=== PATIENT | male | born 1990 | race Hispanic/Latino ===

== ENCOUNTER 2020-05-20 17:30 | Emergency (ER) | payer SELFPAY ==
[2020-05-20 18:08] LABS: Absolute Lymphocytes (CBC) 1.9 K/uL (0.7-4.9); Basophils % 0.8 % (0-1.3); Hematocrit 47.9 % (39.6-49.0); Lymphocytes % 24.1 % (15.3-44.8); RBC Red Blood Cell Count 5.24 M/uL (4.33-5.43)
[2020-05-20 18:10] LABS: Protime INR 1.02
[2020-05-20] MEDS ORDERED: KETOROLAC 30 MG/ML INJ ONE (18:15)
[2020-05-20] MEDS ORDERED: NA CHLORIDE 0.9% 1,000 ML ONE (18:15)
[2020-05-20] MEDS ORDERED: LORazepam 2 MG/ML VIAL ONE (18:15)
--- NOTE | 2020-05-20 18:47 | RAD REPORT ---
EXAM DESCRIPTION: Oskar Single View05/20/2020 6:05 pm CLINICAL HISTORY: Chest pain COMPARISON: none FINDINGS: Lungs are hyperaerated. The lungs appear clear of acute infiltrate. The heart is normal s ize
[2020-05-20 19:02] LABS: ALT/SGPT 29 U/L (12-78); AST/SGOT 30 U/L (15-37); Albumin 4.2 g/dL (3.4-5.0); Alkaline Phosphatase 79 U/L (45-117); BUN Blood Urea Nitrogen 22 mg/dL (7-18); Bicarbonate 20 mmol/L (21-32); Bilirubin Direct 0.2 mg/dL (0-0.2); Bilirubin Total 0.8 mg/dL (0.2-1.0); Glucose Level 137 mg/dL (74-106); Magnesium 1.9 mg/dL (1.8-2.4); NT PRO-BNP 14 pg/mL (<125); Potassium 3.4 mmol/L (3.5-5.1); Protein, Total 7.7 g/dL (6.4-8.2); Sodium Level 136 mmol/L (136-145); Troponin (Emerg Dept Use Only) < 0.02 ng/mL (0.0-0.045)
--- NOTE | 2020-05-20 19:06 | ER ---
Nurse's Notes [facility] Name: Rickey Nielsen Age: 29 yrs Sex: Male : 1990 Arrival Date: 05/20/2020 Time: 17:36 Bed 8 Private MD: Diagnosis: Chest pain on breathing Presentation: 05/20 17:26 Chief complaint: EMS states: called out chest pain and was minimally responsive on sv scene and once in the EMS truck he became more responsive and was hyperventilating. When pain started pt was at work. c/o right hand spasms [id number]. Coronavirus screen: Proceed with normal triage. Patient denies a cough. Patient denies shortness of breath or difficulty breathing. Patient denies measured and/or subjective temperature greater than 100.4F prior to today's visit. Patient denies travel on a cruise ship or to a country the [facility] currently lists as an affected area. Patient denies contact with known and/or suspected case of COVID-19. Ebola Screen: No symptoms or risks identified at this time. Initial Sepsis Screen: Does the patient meet any 2 criteria? RR > 20 per min. No. Patient's initial sepsis screen is negative. Does the patient have a suspected source of infection? No. Patient's initial sepsis screen is negative. Risk Assessment: Do you want to hurt yourself or someone else? Patient reports no desire to harm self or others. Onset of symptoms was May 20, 2020. 17:26 Method Of Arrival: EMS: [facility] sv 17:26 Acuity: JASBIR 3 sv Triage Assessment: 17:26 General: Appears in no apparent distress. uncomfortable, slender, well groomed, well sv developed, Behavior is cooperative, appropriate for age, anxious. Pain: Complains of pain in anterior aspect of left upper chest and left breast Pain currently is 10 out of 10 on a pain scale. Quality of pain is described as sharp, Pain began 30 min ago. Is intermittent, Noted to be grimacing, guarding. Neuro: Level of Consciousness is awake, alert, obeys commands, Oriented to person, place, time, situation, Moves all extremities. Full function Gait is steady, Speech is normal. Cardiovascular: Patient's skin is warm and dry. Pulses are 3+ in right radial artery and left radial artery Rhythm is sinus rhythm. Respiratory: Airway is patent Respiratory effort is even, unlabored, Respiratory pattern is regular, symmetrical. Derm: Skin is intact, Skin is pink, warm \T\ dry. Musculoskeletal: Range of motion: intact in all extremities. Historical: - Allergies: 17:45 No Known Allergies; sv - PMHx: 17:45 Asthma; sv - PSHx: 17:45 None; sv - Immunization history:: Adult Immunizations unknown. - Social history:: Patient/guardian denies using alcohol, street drugs, The patient lives with family, Patient uses alcohol, occasionally. drank [address] drugs, marijuana, Smoking status: . - Family history:: not pertinent. Screenin:37 Abuse screen: Denies threats or abuse. Denies injuries from another. Nutritional ph screening: No deficits noted. Tuberculosis screening: No symptoms or risk factors identified. Fall Risk None identified. Assessment: 18:11 Reassessment: Patient appears in no apparent distress at this time. No changes from previously documented assessment. Patient and/or family updated on plan of care and expected duration. Pain level reassessed. Patient is alert, oriented x 3, equal unlabored respirations, skin warm/dry/pink. Vital Signs: 17:26 BP 131 / 84; Pulse 84; Resp 22; Temp 98.8; Pulse Ox 100% ; Pain 10/10; sv 18:33 BP 111 / 64; Pulse 64 MON; Resp 16; Pulse Ox 99% on R/A; sv 18:33 Sinus Rhythm sv ED Course: 17:36 Patient arrived in ED. ph 17:37 Patient has correct armband on for positive identification. Placed in gown. Bed in low ph position. Call light in reach. Side rails up X2. playground monitor on. Pulse ox on. NIBP on. Door closed. Noise minimized. Warm blanket given. Verbal reassurance given. Head of bed elevated. 17:37 Maintain EMS IV. Dressing intact. Good blood return noted. Site clean \T\ dry. Gauge \T\ ph site: 18 G LAC. Patient maintains SpO2 saturation greater than 95% on room air. 17:40 Arm band placed on. sv 17:42 Deanna Corona RN is Primary Nurse. sv 17:45 Triage completed. sv 17:45 Alicia Braxton MD is Attending Physician. ma2 17:49 Initial lab(s) drawn, by me, sent to lab. sv 18:05 XRAY Chest (1 view) In Process Unspecified. EDMS 19:12 Report given to Evert CARLISLE. sv 19:23 No provider procedures requiring assistance completed. IV discontinued, intact, vc bleeding controlled, No redness/swelling at site. Pressure dressing applied. 19:43 Primary Nurse role handed off by Deanna Corona RN Administered Medications: 18:12 Drug: NS 0.9% 1000 ml Route: IV; Rate: 1 bolus; Site: left antecubital; sv 18:13 Drug: Ativan 1 mg Route: IVP; Site: left antecubital; sv 19:16 Follow up: Response: No adverse reaction sv 18:13 Drug: TORadol 30 mg Route: IVP; Site: left antecubital; sv 19:16 Follow up: Response: No adverse reaction sv Outcome: 19:06 Discharge ordered by . ma2 19:23 Discharged to home ambulatory, with family. vc 19:23 Condition: good 19:23 Discharge instructions given to patient, Instructed on discharge instructions, follow up and referral plans. no drinking with medication, no driving heavy equipment, medication usage, Demonstrated understanding of instructions, follow-up care, medications. 19:23 Patient left the ED. vc Signatures: Dispatcher [employer] EDDeanna Null, Oksana Lund RN, RN RN Alicia Braxton MD MD ma2 Calcote, Vanessa, RN RN
--- NOTE | 2020-05-20 19:07 | EDPHYS ---
Physician Documentation [facility] Name: Rickey Nielsen Age: 29 yrs Sex: Male : 1990 Arrival Date: 05/20/2020 Time: 17:36 Bed 8 Private MD: ED Physician Alicia Braxton HPI: 05/20 18:00 This 29 yrs old Male presents to ER via EMS with complaints of Chest Pain. ma2 18:00 The patient or guardian reports chest pain that is located primarily in the anterior ma2 chest wall. Associated signs and symptoms: Pertinent negatives: cough, headache, lower extremity swelling. Severity of pain: At its worst the pain was very mild in the emergency department the pain has resolved. The patient has experienced similar episodes in the past. has anxiety, hyperventilation, pain is worse with deep breath and movement . Historical: - Allergies: 17:45 No Known Allergies; sv - PMHx: 17:45 Asthma; sv - PSHx: 17:45 None; sv - Immunization history:: Adult Immunizations unknown. - Social history:: Patient/guardian denies using alcohol, street drugs, The patient lives with family, Patient uses alcohol, occasionally. drank [address] drugs, marijuana, Smoking status: . - Family history:: not pertinent. ROS: 18:00 Constitutional: Negative for fever, chills, and weight loss. ma2 18:00 All other systems are negative. Exam: 18:00 Constitutional: This is a well developed, well nourished patient who is awake, alert, ma2 and in no acute distress. Neck: Trachea midline, no thyromegaly or masses palpated, and no cervical lymphadenopathy. Supple, full range of motion without nuchal rigidity, or vertebral point tenderness. No Meningismus. Chest/axilla: Normal chest wall appearance and motion. Nontender with no deformity. No lesions are appreciated. Cardiovascular: Regular rate and rhythm with a normal S1 and S2. No gallops, murmurs, or rubs. Normal PMI, no JVD. No pulse deficits. Respiratory: Lungs have equal breath sounds bilaterally, clear to auscultation and percussion. No rales, rhonchi or wheezes noted. No increased work of breathing, no retractions or nasal flaring. Abdomen/GI: Soft, non-tender, with normal bowel sounds. No distension or tympany. No guarding or rebound. No evidence of tenderness throughout. MS/ Extremity: Pulses equal, no cyanosis. Neurovascular intact. Full, normal range of motion. Neuro: Awake and alert, GCS 15, oriented to person, place, time, and situation. Cranial nerves II-XII grossly intact. Motor strength 5/5 in all extremities. Sensory grossly intact. Cerebellar exam normal. Normal gait. Psych: Awake, alert, with orientation to person, place and time. Behavior, mood, and affect are within normal limits. 18:00 Chest/axilla: Palpation: tenderness, that is moderate, of the anterior aspect of left upper chest. Vital Signs: 17:26 BP 131 / 84; Pulse 84; Resp 22; Temp 98.8; Pulse Ox 100% ; Pain 10/10; sv 18:33 BP 111 / 64; Pulse 64 MON; Resp 16; Pulse Ox 99% on R/A; sv 18:33 Sinus Rhythm sv MDM: 17:46 Patient medically screened. ma2 18:00 Differential diagnosis: chest wall pain, costochondritis, esophagitis, pleurisy. HEART ma2 Score: Total Score = 0. The patient's pulmonary embolism risk score was calculated as follows: No Risks (0 Pts). ZANDER Risk Score: not applicable. Data reviewed: vital signs, nurses notes. Counseling: I had a detailed discussion with the patient and/or guardian regarding: the historical points, exam findings, and any diagnostic results supporting the discharge/admit diagnosis, the presence of at least one elevated blood pressure reading (>120/80) during this emergency department visit, the need for outpatient follow up. Response to treatment: the patient's symptoms have resolved after treatment. 05/20 17:47 Order name: Basic Metabolic Panel; Complete Time: 19:06 ma2 05/20 17:47 Order name: CBC with Diff; Complete Time: 18:59 ma2 05/20 17:47 Order name: LFT's; Complete Time: 19:06 ma2 05/20 17:47 Order name: Magnesium; Complete Time: 19:06 ma2 05/20 17:47 Order name: NT PRO-BNP; Complete Time: 19:06 ma2 05/20 17:47 Order name: PT-INR; Complete Time: 18:59 ma2 05/20 17:42 Order name: EKG; Complete Time: 17:42 sv 05/20 17:42 Order name: EKG - Nurse/Tech; Complete Time: 17:42 sv 05/20 17:47 Order name: Troponin (emerg Dept Use Only); Complete Time: 19:06 ma2 05/20 17:47 Order name: XRAY Chest (1 view); Complete Time: 18:59 ma2 05/20 17:47 Order name: Cardiac monitoring; Complete Time: 17:55 ma2 05/20 17:47 Order name: IV Saline Lock; Complete Time: 17:55 ma2 05/20 17:47 Order name: Labs collected and sent; Complete Time: 17:56 ma2 05/20 17:47 Order name: O2 Per Protocol; Complete Time: 17:56 ma2 05/20 17:47 Order name: O2 Sat Monitoring; Complete Time: 17:56 ma2 Administered Medications: 18:12 Drug: NS 0.9% 1000 ml Route: IV; Rate: 1 bolus; Site: left antecubital; sv 18:13 Drug: Ativan 1 mg Route: IVP; Site: left antecubital; sv 19:16 Follow up: Response: No adverse reaction sv 18:13 Drug: TORadol 30 mg Route: IVP; Site: left antecubital; sv 19:16 Follow up: Response: No adverse reaction sv Disposition: 05/20/20 19:06 Discharged to Home. Impression: Chest pain on breathing. - Condition is Stable. - Discharge Instructions: Chest Wall Pain. - Prescriptions for Ativan 0.5 mg Oral Tablet - take 1 tablet by ORAL route every 8 hours As needed; 20 tablet. Diclofenac Sodium 75 mg Oral Tablet Sustained Release - take 1 tablet by ORAL route 2 times per day; 30 tablet. - Medication Reconciliation Form, Thank You Letter, Antibiotic Education, Prescription Opioid Use form. - Follow up: Private Physician; When: Tomorrow; Reason: Continuance of care. Signatures: Dispatcher [employer] Deanna Alexandre RN RN Oksana Mendes RN RN Alicia Braxton MD MD [facility] Destinee Miller RN RN vc Corrections: (The following items were deleted from the chart) 19:23 19:06 05/20/2020 19:06 Discharged to Home. Impression: Chest pain on breathing. vc Condition is Stable. Discharge Instructions: Chest Wall Pain. Prescriptions for Ativan 0.5 mg Oral Tablet - take 1 tablet by ORAL route every 8 hours As needed; 20 tablet, Diclofenac Sodium 75 mg Oral Tablet Sustained Release - take 1 tablet by ORAL route 2 times per day; 30 tablet. and Forms are Medication Reconciliation Form, Thank You Letter, Antibiotic Education, Prescription Opioid Use. Follow up: Private Physician; When: Tomorrow; Reason: Continuance of care. ma2
[2020-05-20 19:45] VITALS: BP 111/64; O2SAT 99
== END 2020-05-20 19:23 | disposition home or self-care (01) ==
LOC: ER 17:30
DX: R07.1 Chest pain on breathing (principal)
CPT/HCPCS: 36415; 71045; 80048; 80076; 83735; 83880; 84484; 85025; 85610; 93005; 96374; 96375; 99285; J7030

== ENCOUNTER 2020-09-11 16:27 | Emergency (ER) | payer SELFPAY ==
[2020-09-11 17:22] LABS: Absolute Lymphocytes (CBC) 1.2 K/uL (0.7-4.9); Basophils % 0.6 % (0-1.3); Hematocrit 42.1 % (39.6-49.0); Lymphocytes % 16.1 % (15.3-44.8); MPV 7.5 fL (7.6-11.3); RBC Red Blood Cell Count 4.55 M/uL (4.33-5.43)
[2020-09-11 17:23] LABS: Protime INR 0.92
[2020-09-11] MEDS ORDERED: MORPHINE 2 MG/ML SYR ONE (17:28)
[2020-09-11] MEDS ORDERED: ONDANSETRON 4 MG/2 ML VIAL ONE (17:29)
[2020-09-11] MEDS ORDERED: NA CHLORIDE 0.9% 1,000 ML ONE (17:29)
--- NOTE | 2020-09-11 17:29 | RAD REPORT ---
EXAM DESCRIPTION: CT - [id number] - 09/11/2020 5:07 pm CLINICAL HISTORY: head injury, neck injury COMPARISON: No comparisons TECHNIQUE: Axial 5 mm thick images of the head were obtained. Axial 2 mm thick images of the cervic al spine were obtained with sagittal and coronal reconstruction images generated and reviewed. All CT scans are performed using dose optimization technique as appropriate and may include automated exposure control or mA/KV adjustment according to patient size. FINDINGS: No intracranial hemorrhage, mass, edema or acute intracranial finding. No suspicion for ac clark's point infarction. No extra-axial fluid collections. Mastoid air cells and paranasal sinuses are clear. No globe or orbit abnormality seen. Cervical body height and alignment are normal. No disk space narrowing. No fracture or acute bony abn ormality. Central canal detail is inherently limited. No paraspinal mass or hematoma. IMPRESSION: Negative CT head examination for acute or significant finding. Negative CT cervical spine examination for acute or significant finding.
[2020-09-11 17:31] LABS: BUN Blood Urea Nitrogen 14 mg/dL (7-18); Bicarbonate 26 mmol/L (21-32); Glucose Level 97 mg/dL (74-106); Potassium 3.6 mmol/L (3.5-5.1); Sodium Level 140 mmol/L (136-145)
[2020-09-11] MEDS ORDERED: MECLIZINE HCL 12.5 MG TAB ONE (18:13)
[2020-09-11] MEDS ORDERED: DIPHENHYDRAMINE 50 MG/ML VIAL ONE (18:13)
[2020-09-11] MEDS ORDERED: KETOROLAC 30 MG/ML INJ ONE (18:13)
--- NOTE | 2020-09-11 18:29 | RAD REPORT ---
EXAM DESCRIPTION: RAD - Humerus Left - 09/11/2020 5:35 pm CLINICAL HISTORY: Left arm pain, trauma COMPARISON: None. FINDINGS: No fracture is identified. There is no dislocation or periosteal reaction noted. No forei gn body or other soft tissue abnormality. IMPRESSION: Negative left humerus examination.
--- NOTE | 2020-09-11 18:29 | RAD REPORT ---
EXAM DESCRIPTION: RAD - Chest Single View - 09/11/2020 5:35 pm CLINICAL HISTORY: TRAUMA, chest pain COMPARISON: May 20, 2020 TECHNIQUE: AP portable chest image was obtained 09/11/2020 5:35 pm . FINDINGS: Lungs are clear. Heart and vasculature are normal. No measurable pleural effusion and no p neumothorax. No acute bony abnormality seen. No acute aortic findings suspected. IMPRESSION: No acute cardiopulmonary process.
--- NOTE | 2020-09-11 18:31 | EDPHYS ---
Physician Documentation [facility] Name: Rickey Nielsen Age: 30 yrs Sex: Male : 1990 Arrival Date: 09/11/2020 Time: 16:39 Bed 5 Private MD: ED Physician Herbert Kelley HPI: 09/11 17:55 This 30 yrs old Male presents to ER via EMS with complaints of Dizziness. cp 17:55 The patient or guardian reports injury, pain, swelling, tenderness. The complaints cp affect the left ear, left baptism and left temporal area. Context of injury: The problem was sustained at soccer field, resulted from a direct blow, knee from another player. Onset: The symptoms/episode began/occurred 2 day(s) ago. Associated signs and symptoms: Loss of consciousness: This patient experience a loss of consciousness, for an unknown period of time, Pertinent positives: headache, neck pain, left upper arm pain, chest pain. Historical: - Allergies: 16:43 No Known Allergies; rb1 - Home Meds: 16:43 None [Active]; rb1 - PMHx: 16:43 Asthma; rb1 - PSHx: 16:43 None; rb1 - Immunization history:: Adult Immunizations up to date. - Social history:: Smoking status: Patient/guardian denies using. ROS: 17:58 Constitutional: Negative for body aches, chills, fever, poor PO intake. cp 17:58 Neck: Positive for pain with movement, tenderness. 17:58 Cardiovascular: Positive for chest pain. 17:58 Respiratory: Negative for cough, shortness of breath, wheezing. 17:58 Abdomen/GI: Negative for abdominal pain, vomiting, diarrhea, constipation. 17:58 Back: Negative for pain at rest, pain with movement. 17:58 Skin: Positive for abrasion(s). 17:58 Neuro: Positive for headache, loss of consciousness, Negative for altered mental status, weakness. 17:58 All other systems are negative. Exam: 18:05 Constitutional: The patient appears in no acute distress, alert, awake, well developed, cp well nourished, uncomfortable. 18:05 Head/face: Noted is abrasion(s), that are mild, of the left ear, swelling, that is cp mild, of the left ear, tenderness, that is severe, of the left ear, Sinus tenderness, is not appreciated. 18:05 Eyes: Periorbital structures: appear normal, Pupils: equal, round, and reactive to light and accomodation, Extraocular movements: intact throughout, Conjunctiva: normal, no exudate, no injection, Lids and lashes: appear normal, bilaterally. 18:05 ENT: External ear(s): are unremarkable, Ear canal(s): are normal, clear, TM's: bulging, is not appreciated, bilaterally, dullness, bilaterally, erythema, is not appreciated, bilaterally, Nose: is normal, Mouth: Lips: moist, Oral mucosa: moist, Posterior pharynx: Airway: no evidence of obstruction, patent. 18:05 Neck: C-spine: C-collar placed in ED, vertebral tenderness, that is moderate, appreciated at C5 and C6, crepitus, is not appreciated. 18:05 Chest/axilla: Inspection: normal, Palpation: crepitus, is not appreciated, tenderness, that is mild, of the left supraclavicular area and left clavicle. 18:05 Cardiovascular: Rate: normal, Rhythm: regular, Heart sounds: murmur, not appreciated. 18:05 Respiratory: the patient does not display signs of respiratory distress, Respirations: normal, no use of accessory muscles, no retractions, labored breathing, is not present, Breath sounds: are clear throughout, no decreased breath sounds, no stridor, no wheezing. 18:05 Abdomen/GI: Inspection: abdomen appears normal, Palpation: abdomen is soft and non-tender, in all quadrants. 18:05 Back: pain, is absent, ROM is normal. 18:05 Musculoskeletal/extremity: Extremities: grossly normal except: noted in the left upper arm: pain, tenderness, There is no evidence of deformity, Pulses: noted to be 2+ in the right radial artery and left radial artery. 18:05 Neuro: Orientation: to person, place \T\ time. Mentation: able to follow commands, slow to respond, Cerebellar function: is grossly normal, Motor: moves all fours, strength is normal, Sensation: no obvious gross deficits. Vital Signs: 16:41 BP 118 / 66; Pulse 73; Resp 16; Temp 98.4(O); Pulse Ox 100% on R/A; mt 16:43 BP 118 / 66; Pulse 50; Resp 17; Temp 98.7; Pulse Ox 100% ; Weight 59.87 kg; Height 5 rb1 ft. 8 in. (172.72 cm); Pain 10/10; 17:40 BP 136 / 87; Pulse 44; Resp 16; Pulse Ox 100% ; rb1 19:00 BP 127 / 70; Pulse 70; Resp 18; Temp 98.0(TE); Pulse Ox 98% ; ea 16:43 Body Mass Index 20.07 (59.87 kg, 172.72 cm) rb1 Monroe Coma Score: 17:55 Eye Response: spontaneous(4). Verbal Response: oriented(5). Motor Response: obeys cp commands(6). Total: 15. MDM: 16:43 Patient medically screened. cp 17:00 Differential diagnosis: Contusion of Hematoma on Intracranial bleed- Concussion cp cerebral contusion. 18:28 Data reviewed: vital signs, nurses notes, lab test result(s), radiologic studies, CT cp scan. Counseling: I had a detailed discussion with the patient and/or guardian regarding: the historical points, exam findings, and any diagnostic results supporting the discharge/admit diagnosis, lab results, radiology results, the need for outpatient follow up, a neurologist. Response to treatment: the patient's symptoms have markedly improved after treatment, and as a result, I will discharge patient. 18:30 Special discussion: Based on the patient's history, exam and DX evaluation, there is no cp indication for emergent intervention or inpatient TX. It is understood by the patient/guardian that if the SXs persist or worsen they need to return immediately for re-evaluation. 18:30 ED course: VSS. Pain improved with meds. Head and neck CT negative for traumatic cp findings. Will discharge to home with head injury precautions. 09/11 16:55 Order name: Basic Metabolic Panel; Complete Time: 17:51 cp 09/11 17:51 Interpretation: Normal except: CL 109. cp 09/11 16:55 Order name: CBC with Diff; Complete Time: 17:51 cp 09/11 16:55 Order name: CT Head C Spine; Complete Time: 17:51 cp 09/11 17:51 Interpretation: Reviewed report. cp 09/11 16:55 Order name: Type And Screen; Complete Time: 18:12 cp 09/11 18:13 Interpretation: Reviewed. cp 09/11 16:55 Order name: XRAY Chest (1 view); Complete Time: 18:35 cp 09/11 18:35 Interpretation: Report review. 09/11 16:55 Order name: PT-INR; Complete Time: 17:51 cp 09/11 16:55 Order name: Labs collected and sent; Complete Time: 17:06 cp 09/11 16:55 Order name: XRAY Humerus LEFT; Complete Time: 18:35 cp Administered Medications: 17:35 Drug: Zofran (Ondansetron) 4 mg Route: IVP; Site: right antecubital; rb1 17:50 Follow up: Response: No adverse reaction; Nausea is decreased rb1 17:35 Drug: NS 0.9% 1000 ml Route: IV; Rate: 1 bolus; Site: right antecubital; rb1 19:00 Follow up: Response: No adverse reaction; IV Status: Completed infusion; IV Intake: ea 1000ml 17:36 Drug: morphine 2 mg Route: IVP; Site: right antecubital; rb1 19:11 Follow up: Response: No adverse reaction; Pain is decreased; RASS: Alert and Calm (0) ea 18:00 Drug: Meclizine 25 mg Route: PO; rb1 19:10 Follow up: Response: No adverse reaction ea 18:03 Drug: Benadryl 12.5 mg Route: IVP; Site: right antecubital; rb1 19:05 Follow up: Response: No adverse reaction ea 18:03 Drug: TORadol - Ketorolac 15 mg Route: IVP; Site: right antecubital; rb1 19:05 Follow up: Response: No adverse reaction ea Disposition: 18:45 Chart complete. Disposition: 09/11/20 18:30 Discharged to Home. Impression: Concussion with loss of consciousness of unspecified duration, Contusion of unspecified part of head. - Condition is Stable. - Discharge Instructions: Concussion, Adult, Facial or Scalp Contusion, Head Injury, Adult. - Prescriptions for Ibuprofen 800 mg Oral Tablet - take 1 tablet by ORAL route every 8 hours As needed take with food; 30 tablet. - Medication Reconciliation Form, Thank You Letter, Antibiotic Education, Prescription Opioid Use form. - Follow up: Phan Jackson MD; When: 1 - 2 days; Reason: Recheck today's complaints. - Problem is new. - Symptoms have improved. Signatures: Dispatcher [employer] EDMS Tunde Sood PA PA cp Barber, Rebecca, RN RN Jo Rodriguez RN RN ea Corrections: (The following items were deleted from the chart) 19:12 18:30 09/11/2020 18:30 Discharged to Home. Impression: Concussion with loss of ea consciousness of unspecified duration; Contusion of unspecified part of head. Condition is Stable. Forms are Medication Reconciliation Form, Thank You Letter, Antibiotic Education, Prescription Opioid Use. Follow up: Phan Jackson; When: 1 - 2 days; Reason: Recheck today's complaints. Problem is new. Symptoms have improved. cp
--- NOTE | 2020-09-11 18:31 | ER ---
Nurse's Notes [facility] Name: Rickey Nielsen Age: 30 yrs Sex: Male : 1990 Arrival Date: 09/11/2020 Time: 16:39 Bed 5 Private MD: Diagnosis: Concussion with loss of consciousness of unspecified duration;Contusion of unspecified part of head Presentation: 09/11 16:43 Chief complaint: EMS states: Pt. was playing soccer on Thursday when he got hit with a rb1 knee to the left side of the head. Reports LOC, pain in the left shoulder, left ear, and left side of the head. He had nausea and vomiting on Thursday. Has a laceration on the left ear. Vital signs are stable. NKDA, No history or meds. Coronavirus screen: Client denies travel out of the [place] in the last 14 days. Ebola Screen: Patient denies travel to an Ebola-affected area in the 21 days before illness onset. Initial Sepsis Screen: Does the patient meet any 2 criteria? No. Patient's initial sepsis screen is negative. Does the patient have a suspected source of infection? No. Patient's initial sepsis screen is negative. Risk Assessment: Do you want to hurt yourself or someone else? Patient reports no desire to harm self or others. Onset of symptoms was September 09, 2020. 16:43 Method Of Arrival: EMS: [facility] rb1 16:43 Acuity: JASBIR 3 rb1 Triage Assessment: 16:43 General: Appears uncomfortable, Behavior is calm, cooperative. Pain: Complains of pain rb1 in left side of head, left shoulder, left ear Pain currently is 10 out of 10 on a pain scale. Pain began Thursday. Neuro: Level of Consciousness is awake, alert, obeys commands, Oriented to person, place, time, situation. Cardiovascular: Patient's skin is warm and dry. Respiratory: Airway is patent Respiratory effort is even, unlabored, Respiratory pattern is regular, symmetrical. GI: No signs and/or symptoms were reported involving the gastrointestinal system. : No signs and/or symptoms were reported regarding the genitourinary system. Derm: Skin is pink, warm \T\ dry. Derm: small laceration noted to the left ear. Historical: - Allergies: 16:43 No Known Allergies; rb1 - Home Meds: 16:43 None [Active]; rb1 - PMHx: 16:43 Asthma; rb1 - PSHx: 16:43 None; rb1 - Immunization history:: Adult Immunizations up to date. - Social history:: Smoking status: Patient/guardian denies using. Screenin:43 Abuse screen: Denies threats or abuse. Nutritional screening: No deficits noted. rb1 Tuberculosis screening: No symptoms or risk factors identified. Fall Risk None identified. Assessment: 16:43 General: See triage assessment. rb1 18:00 Reassessment: Patient appears in no apparent distress at this time. Patient and/or rb1 family updated on plan of care and expected duration. Pain level reassessed. Patient is alert, oriented x 3, equal unlabored respirations, skin warm/dry/pink. 19:08 Reassessment: Patient and/or family updated on plan of care and expected duration. Pain ea level reassessed. Patient is alert, oriented x 3, equal unlabored respirations, skin warm/dry/pink. Discharge instruction given to patient and mother both verbalized the understanding of instruction. Pt left ED ambulatory accompanied by mother pt tolerating well. General: Appears. Vital Signs: 16:41 BP 118 / 66; Pulse 73; Resp 16; Temp 98.4(O); Pulse Ox 100% on R/A; mt 16:43 BP 118 / 66; Pulse 50; Resp 17; Temp 98.7; Pulse Ox 100% ; Weight 59.87 kg; Height 5 rb1 ft. 8 in. (172.72 cm); Pain 10/10; 17:40 BP 136 / 87; Pulse 44; Resp 16; Pulse Ox 100% ; rb1 19:00 BP 127 / 70; Pulse 70; Resp 18; Temp 98.0(TE); Pulse Ox 98% ; ea 16:43 Body Mass Index 20.07 (59.87 kg, 172.72 cm) rb1 Ronna Coma Score: 17:55 Eye Response: spontaneous(4). Verbal Response: oriented(5). Motor Response: obeys cp commands(6). Total: 15. ED Course: 16:39 Patient arrived in ED. iw 16:39 Tunde Sood PA is PHCP. cp 16:39 Herbert Kelley MD is Attending Physician. cp 16:43 Arm band placed on. rb1 16:43 Patient has correct armband on for positive identification. Bed in low position. Call rb1 light in reach. Side rails up X 1. Pulse ox on. NIBP on. 16:43 Maintain EMS IV. Dressing intact. Good blood return noted. Site clean \T\ dry. Gauge \T\ rb 1 site: 20 G R AC. 16:55 Lynda Sifuentes, RN is Primary Nurse. rb1 17:07 Triage completed. rb1 17:08 CT Head C Spine In Process Unspecified. EDMS 17:35 XRAY Chest (1 view) In Process Unspecified. EDMS 17:35 XRAY Humerus LEFT In Process Unspecified. EDMS 18:29 Phan Jackson MD is Referral Physician. cp 19:08 No provider procedures requiring assistance completed. IV discontinued, intact, ea bleeding controlled, No redness/swelling at site. Pressure dressing applied. Administered Medications: 17:35 Drug: Zofran (Ondansetron) 4 mg Route: IVP; Site: right antecubital; rb1 17:50 Follow up: Response: No adverse reaction; Nausea is decreased rb1 17:35 Drug: NS 0.9% 1000 ml Route: IV; Rate: 1 bolus; Site: right antecubital; rb1 19:00 Follow up: Response: No adverse reaction; IV Status: Completed infusion; IV Intake: ea 1000ml 17:36 Drug: morphine 2 mg Route: IVP; Site: right antecubital; rb1 19:11 Follow up: Response: No adverse reaction; Pain is decreased; RASS: Alert and Calm (0) ea 18:00 Drug: Meclizine 25 mg Route: PO; rb1 19:10 Follow up: Response: No adverse reaction ea 18:03 Drug: Benadryl 12.5 mg Route: IVP; Site: right antecubital; rb1 19:05 Follow up: Response: No adverse reaction ea 18:03 Drug: TORadol - Ketorolac 15 mg Route: IVP; Site: right antecubital; rb1 19:05 Follow up: Response: No adverse reaction ea Intake: 19:00 IV: 1000ml; Total: 1000ml. ea Outcome: 18:30 Discharge ordered by . cp 19:09 Discharged to home ambulatory, with family. ea 19:09 Condition: stable 19:09 Discharge instructions given to patient, family, Instructed on discharge instructions, follow up and referral plans. medication usage, Demonstrated understanding of instructions, follow-up care, medications, Prescriptions given X 1. 19:12 Patient left the ED. ea Signatures: Dispatcher [employer] Romelia Nascimento, RN RN Tunde Kowalski PA PA cp Barber, Rebecca, RN RN Eryn Barrow mt, Elena, RN RN ea
[2020-09-11 20:25] VITALS: O2SAT 100
[2020-09-11 20:27] VITALS: TEMP 98.7
[2020-09-11 20:28] VITALS: BP 136/87
== END 2020-09-11 19:12 | disposition home or self-care (01) ==
LOC: ER 16:27
DX: S06.0X9A Concussion with loss of consciousness of unspecified duration, initial encounter (principal); S00.93XA Contusion of unspecified part of head, initial encounter; W50.0XXA Accidental hit or strike by another person, initial encounter; Y93.66 Activity, soccer; Y92.9 Unspecified place or not applicable
CPT/HCPCS: 36415; 70450; 71045; 72125; 80048; 85025; 85610; 86850; 86900; 86901; 96361; 96374; 96375; 99284; J1200; J2270; J2405; J7030

== ENCOUNTER 2021-09-08 13:22 | Inpatient (IN) | payer SELFPAY ==
[2021-09-08 13:52] LABS: Absolute Lymphocytes (CBC) 1.1 K/uL (0.7-4.9); Basophils % 0.7 % (0-1.3); Hematocrit 45.1 % (39.6-49.0); RBC Red Blood Cell Count 4.91 M/uL (4.33-5.43)
[2021-09-08 13:57] LABS: Protime INR 0.97
[2021-09-08 14:11] LABS: BUN Blood Urea Nitrogen 9 mg/dL (7-18); Bicarbonate 28 mmol/L (21-32); Glucose Level 112 mg/dL (74-106); Potassium 3.7 mmol/L (3.5-5.1); Sodium Level 141 mmol/L (136-145); Troponin (Emerg Dept Use Only) < 0.02 ng/mL (0.0-0.045)
--- NOTE | 2021-09-08 14:14 | RAD REPORT ---
EXAM DESCRIPTION: RAD - Chest Single View - 09/08/2021 1:38 pm CLINICAL HISTORY: BLUNT CHEST TRAUMA COMPARISON: August 2020 TECHNIQUE: AP portable chest image was obtained 09/08/2021 1:38 pm in supine position with the patie nt still on a backboard. . FINDINGS: Lungs are clear. Heart and vasculature are normal. No measurable pleural effusion and no p neumothorax. No acute bony abnormality seen. No acute aortic findings suspected. IMPRESSION: No acute cardiopulmonary process.
--- NOTE | 2021-09-08 14:14 | RAD REPORT ---
EXAM DESCRIPTION: CT - CTHCSPWOC - 09/08/2021 1:50 pm CLINICAL HISTORY: syncope vs seizure, blunt trauma to chest COMPARISON: CT head August 2020 TECHNIQUE: Axial 5 mm thick images of the head were obtained. Axial 2 mm thick images of the cervic al spine were obtained with sagittal and coronal reconstruction images generated and reviewed. All CT scans are performed using dose optimization technique as appropriate and may include automated exposure control or mA/KV adjustment according to patient size. FINDINGS: No intracranial hemorrhage, mass, edema or acute intracranial finding. No suspicion for ac sycuan infarction. No extra-axial fluid collections. Mastoid air cells are clear. Minimal mucosal thicke gómez and small air-fluid level in the right maxillary sinus. No globe or orbit abnormality seen. Cervical body height and alignment are normal. No disk space narrowing. No fracture or acute bony abn ormality. Central canal detail is inherently limited. No paraspinal mass or hematoma. IMPRESSION: Negative CT head examination for acute or significant finding. Negative CT cervical spine examination for acute or significant finding. No significant changes from prior imaging.
--- NOTE | 2021-09-08 14:16 | RAD REPORT ---
EXAM DESCRIPTION: CT - Thorax W/ Con - 09/08/2021 1:56 pm CLINICAL HISTORY: blunt trauma to chest, syncope vs seizure COMPARISON: Head C Spine Mpr Wo Con dated 09/11/2020No comparisons TECHNIQUE: Dynamically enhanced 5 mm thick images of the chest were obtained during administration o f 100 mL non-ionic IV contrast. All CT scans are performed using dose optimization technique as appropriate and may include automated exposure control or mA/KV adjustment according to patient size. FINDINGS: No mass or infiltrate in the lung parenchyma. No pleural thickening or pleural effusion. N o pneumothorax. No chest wall mass or abnormal axillary lymphadenopathy. No abnormal mediastinal or hilar mass or lymphadenopathy seen. No mediastinal hematoma. Sternum is intact. No rib fractures identifiable. IMPRESSION: Negative contrast enhanced CT chest examination.
--- NOTE | 2021-09-08 15:12 | EDPHYS ---
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 Mechanism of injury: Blunt trauma. Associated injuries: The patient sustained injury to the chest, contusion, pain with breathing. Onset: The symptoms/episode began/occurred just prior to arrival. The patient has not experienced similar symptoms in the past. The patient has not recently seen a physician. Per EMS report patient was playing soccer, had a collision and somehow hit in the chest anterior chest, fell to ground and was unresponsive for approximately 5 minutes. Upon EMS arrival patient was cyanotic but then regained consciousness. EMS reports irregular breathing but no seizure-like activity. No bystander CPR or anything done. Patient denies any cardiac history or family history of early cardiac problems. Patient states has had multiple episodes of syncope while playing sports or with exertion at work without clear diagnosis. Denies any recent illness.. Historical: - PMHx: 13:25 Asthma; ll1 - Immunization history:: Adult Immunizations up to date. - Social history:: Smoking status: Patient denies any tobacco usage or history of. - Immunization history: Last tetanus immunization: - up to date. - Family history:: not pertinent. - Hospitalizations: : No recent hospitalization is reported. ROS: 13:34 Constitutional: Negative for fever, chills, and weight loss, Eyes: Negative for injury, rn pain, redness, and discharge, Neck: Negative for injury, pain, and swelling, Cardiovascular: Negative for palpitations, and edema, Respiratory: Negative for shortness of breath, cough, wheezing, and pleuritic chest pain, Abdomen/GI: Negative for abdominal pain, nausea, vomiting, diarrhea, and constipation, Back: Negative for injury and pain, MS/Extremity: Negative for injury and deformity, Skin: Negative for injury, rash, and discoloration, Neuro: Negative for headache, weakness, numbness, tingling, and seizure. Exam: 13:34 ECG was reviewed by the Attending Physician. rn 13:40 Constitutional: This is a well developed, well nourished patient who is awake, alert, rn appears anxious Head/Face: Normocephalic, atraumatic. Eyes: Pupils equal round and reactive to light, extra-ocular motions intact. Lids and lashes normal. Conjunctiva and sclera are non-icteric and not injected. Cornea within normal limits. Periorbital areas with no swelling, redness, or edema. Neck: In c-collar, no midline tenderness, trachea midline Chest/axilla: Normal chest wall appearance and motion. Mild tenderness to sternum without crepitus or movement. Cardiovascular: Regular rate and rhythm. No pulse deficits. Respiratory: No increased work of breathing, no retractions or nasal flaring. Abdomen/GI: Soft, non-tender Skin: Warm, dry MS/ Extremity: Pulses equal, no cyanosis. Neurovascular intact. Full, normal range of motion. Equal circumference. Neuro: Awake and alert, GCS 15, oriented to person, place, time, and situation. Cranial nerves II-XII grossly intact. Motor strength 5/5 in all extremities. Sensory grossly intact. Vital Signs: 13:23 BP 119 / 83; Pulse 73; Resp 15; Temp 98.9; Pulse Ox 99% ; Weight 59.87 kg; Height 5 ft. ss 7 in. (170.18 cm); Pain 5/10; 14:00 BP 121 / 71; Pulse 70; Resp 14; Pulse Ox 100% ; Pain 6/10; ll1 17:39 BP 119 / 71; Pulse 60; Resp 14; Pulse Ox 100% on R/A; ll1 13:23 Body Mass Index 20.67 (59.87 kg, 170.18 cm) [place] Coma Score: 13:23 Eye Response: spontaneous(4). Verbal Response: oriented(5). Motor Response: obeys commands(6). Total: 15. Trauma Score (Adult): 13:23 Eye Response: spontaneous(1); Verbal Response: oriented(1); Motor Response: obeys ss commands(2); Systolic BP: > 89 mm Hg(4); Respiratory Rate: 10 to 29 per min(4); Ronna Score: 15; Trauma Score: 12 MDM: 13:24 Patient medically screened. rn 15:02 Differential diagnosis: cardiac contusion, Back arrhythmia, syncope, seizure. Data rn reviewed: vital signs, nurses notes, lab test result(s), EKG, radiologic studies, CT scan, and as a result, I will admit patient. Data interpreted: employee adviser: rate is 73 beats/min, rhythm is normal sinus rhythm, regular, with no ectopy, Interpretation: normal rate, normal rhythm, Pulse oximetry: on room air is 99 %. Interpretation: normal. Counseling: I had a detailed discussion with the patient and/or guardian regarding: the historical points, exam findings, and any diagnostic results supporting the discharge/admit diagnosis, lab results, radiology results, the need for further work-up and treatment in the hospital. Response to treatment: the patient's symptoms have markedly improved after treatment, and as a result, I will admit patient. Admission orders: after a detailed discussion of the patient's condition and case, the admit orders are written by me. ED course: No acute findings on CT/EKG/troponin. Patient without any further episodes here and stable vital signs. Mother states multiple episodes of syncope during cardio exercise and sports activities without previous work-up. Has been told to follow-up with cardiology and has not. Brother with heart problem that required surgery but unable to tell me exactly the problem. Will observe overnight given possible cardiac arrhythmia secondary to contusion definitely a possibility.. 09/08 13:28 Order name: CBC with Diff; Complete Time: 14:21 rn 09/08 13:28 Order name: Basic Metabolic Panel; Complete Time: 14:21 rn 09/08 13:28 Order name: Troponin (emerg Dept Use Only); Complete Time: 14:21 rn 09/08 13:28 Order name: PT-INR; Complete Time: 14:21 rn 09/08 13:28 Order name: Ptt, Activated; Complete Time: 14:21 rn 09/08 13:40 Order name: Flu rn 09/08 13:40 Order name: Strep rn 09/08 13:40 Order name: Influenza Screen (A EDMS 09/08 13:40 Order name: Group A Streptococcus Rapid Sc EDMS 09/08 15:08 Order name: SARS-COV-2 RT PCR EDMS 09/08 15:23 Order name: CBC with Automated Diff EDMS 09/08 15:23 Order name: CBC with Automated Diff EDMS 09/08 15:23 Order name: Comprehensive Metabolic Panel EDDC 09/08 13:28 Order name: CT Head C Spine; Complete Time: 14:21 rn 09/08 13:28 Order name: CT Chest W/ Con; Complete Time: 14:21 rn 09/08 13:28 Order name: IV Start; Complete Time: 13:29 rn 09/08 13:28 Order name: EKG; Complete Time: 13:30 rn 09/08 13:28 Order name: EKG - Nurse/Tech; Complete Time: 13:29 rn 09/08 13:31 Order name: Cardiac monitoring; Complete Time: 13:40 rn 09/08 13:31 Order name: O2 Sat Monitoring; Complete Time: 13:40 rn 09/08 13:33 Order name: XRAY Chest (1 view); Complete Time: 14:21 rn 09/08 15:23 Order name: Heart Healthy EDDC 09/08 15:23 Order name: Comprehensive Metabolic Panel EDDC 09/08 15:25 Order name: Echo without Doppler (2D) EDMS EC:34 Rate is 66 beats/min. Rhythm is regular. QRS [place] is Normal. DC interval is normal. QRS rn interval is normal. QT interval is normal. No Q waves. T waves are Normal. No ST changes noted. Clinical impression: Normal ECG. Interpreted by me. Reviewed by me. Administered Medications: No medications were administered Disposition Summary: 09/08/21 15:11 Hospitalization Ordered Hospitalization Status: Observation rn Provider: Alicia Wan rn Location: Telemetry/MedSurg (observation) rn Condition: Stable rn Problem: new rn Symptoms: have improved rn Bed/Room Type: Standard rn Room Assignment: 408(09/08/21 18:11) Diagnosis - Syncope rn - Contusion of left front wall of thorax, initial encounter rn - SARS-associated coronavirus as the cause of diseases classified elsewhere rn Forms: - Medication Reconciliation Form rn - SBAR form rn Signatures: Dispatcher [employer] EDSydnee Ruth RN Herbert Zee MD MD rn Lewis, Lynsay, RN RN ll1 Corrections: (The following items were deleted from the chart) 13:40 13:34 Constitutional: Negative for fever, chills, and weight loss, Eyes: Negative for rn injury, pain, redness, and discharge, Neck: Negative for injury, pain, and swelling, Cardiovascular: Negative for palpitations, and edema, Respiratory: Negative for shortness of breath, cough, wheezing, and pleuritic chest pain, Abdomen/GI: Negative for abdominal pain, nausea, vomiting, diarrhea, and constipation, Back: Negative for injury and pain, MS/Extremity: Negative for injury and deformity, Skin: Negative for injury, rash, and discoloration, Neuro: Negative for headache, weakness, numbness, tingling, and seizure, rn 15:07 13:31 CORONAVIRUS+MR.LAB.BRZ ordered. EDMS EDMS 18:11 15:11 rn dw
--- NOTE | 2021-09-08 15:12 | ER ---
Nurse's Notes [facility] Name: Rickey Nielsen Age: 30 yrs Sex: Male : 1990 Arrival Date: 09/08/2021 Time: 13:23 Bed 15 Private MD: Diagnosis: Syncope;Contusion of left front wall of thorax, initial encounter;SARS-associated coronavirus as the cause of diseases classified elsewhere Presentation: 09/08 13:23 Chief complaint: EMS states: "He was playing soccer when a ball hit him hard in the chest, and immediately became unresponsive. Upon arrival to scene he was cyanotic, jaw clinched, slow and shallow respirations. Moments later, patient became awake and alert." Patient c/o sharp pain to chest and L lateral chest wall. Care prior to arrival: C-Collar and backboard in place. Mechanism of Injury: See triage note. 13:23 Acuity: JASBIR 2 ss 13:23 Method Of Arrival: EMS: [facility] 13:26 Ebola Screen: Patient denies travel to an Ebola-affected area in the 21 days before 1 illness onset. Risk Assessment: Do you want to hurt yourself or someone else? Patient reports no desire to harm self or others. Onset of symptoms was September 08, 2021. 13:26 Method Of Arrival: Ambulatory [facility] 13:26 Method Of Arrival: EMS: [place] [address] 13:33 Coronavirus screen: Vaccine status: Patient reports being unvaccinated. Client denies ss travel out of the [place] in the last 14 days. Initial Sepsis Screen: Does the patient meet any 2 criteria? No. Patient's initial sepsis screen is negative. Does the patient have a suspected source of infection? No. Patient's initial sepsis screen is negative. 17:40 Trauma event details: Injury occurred in the [facility]. 1 Triage Assessment: 13:28 General: Appears in no apparent distress. Behavior is calm, cooperative, appropriate ll1 for age. Trauma Activation: Not Applicable Physician: ED Physician; Name: ; Notified At: ; Arrived At: Physician: General Surgeon; Name: ; Notified At: ; Arrived At: Physician: Radiology; Name: ; Notified At: ; Arrived At: Physician: Respiratory; Name: ; Notified At: ; Arrived At: Physician: Lab; Name: ; Notified At: ; Arrived At: Historical: - PMHx: 13:25 Asthma; ll1 - Immunization history:: Adult Immunizations up to date. - Social history:: Smoking status: Patient denies any tobacco usage or history of. - Immunization history: Last tetanus immunization: - up to date. - Family history:: not pertinent. - Hospitalizations: : No recent hospitalization is reported. Screenin:35 Abuse screen: Denies threats or abuse. Nutritional screening: No deficits noted. ll1 Tuberculosis screening: No symptoms or risk factors identified. Fall Risk Fall in past 12 months (25 points). IV access (20 points). Ambulatory Aid- Crutches/Cane/Walker (15 pts). Gait- Weak (10 pts.). Total [place] Fall Scale indicates High Risk Score (45 or more points). Fall prevention measures have been instituted. Side Rails Up X 2 Frequent Obs/Assessments Occuring As available patient and family educated on Fall Prevention Program and Strategies. Primary Survey: 13:23 NO uncontrolled hemorrhage observed. A: The patient is alert. Airway: patent, No ss supplemental oxygen in use on arrival. Oral cavity: clear, Trachea midline. Breathing/Chest: Respiratory pattern: regular, Respiratory effort: spontaneous, unlabored, Breath sounds: clear, bilaterally. Chest inspection: symmetrical rise and fall of the chest. Circulation: Pulses: palpable right radial artery, right posterior tibial artery, left radial artery and left posterior tibial artery. Disability Alert. Exposure/Environment: There is no evidence of uncontrolled external bleeding. No obvious injuries are noted at this time. A warming method has been applied: A warm blanket has been provided to the patient. 18:20 Reassessment Airway Airway Breathing/Chest Respiratory pattern Regular Respiratory ll1 effort Spontaneous Unlabored Breath sounds Clear. Assessment: 13:30 General: Appears in no apparent distress. Behavior is calm, cooperative, appropriate ll1 for age. Pain: Complains of pain in chest Quality of pain is described as aching, Aggravated by increased activity. Neuro: No deficits noted. Level of Consciousness is awake, alert, obeys commands, Oriented to person, place, time, situation, Appropriate for age Moves all extremities. Full function Speech is normal, Facial symmetry appears normal, Reports a syncopal episode. Cardiovascular: Reports chest pain, Heart tones S1 S2 Capillary refill < 3 seconds Clubbing of nail beds is absent JVD is absent Patient's skin is warm and dry. Rhythm is regular. Respiratory: No deficits noted. Breath sounds are clear bilaterally. 14:30 Reassessment: No changes from previously documented assessment. Patient and/or family ll1 updated on plan of care and expected duration. Pain level reassessed. Patient is alert, oriented x 3, equal unlabored respirations, skin warm/dry/pink. 15:30 Reassessment: No changes from previously documented assessment. Patient and/or family ll1 updated on plan of care and expected duration. Pain level reassessed. Patient is alert, oriented x 3, equal unlabored respirations, skin warm/dry/pink. Patient states feeling better. 16:30 Reassessment: No changes from previously documented assessment. Patient and/or family ll1 updated on plan of care and expected duration. Pain level reassessed. Patient is alert, oriented x 3, equal unlabored respirations, skin warm/dry/pink. 17:30 Reassessment: No changes from previously documented assessment. Patient and/or family ll1 updated on plan of care and expected duration. Pain level reassessed. Patient is alert, oriented x 3, equal unlabored respirations, skin warm/dry/pink. Vital Signs: 13:23 BP 119 / 83; Pulse 73; Resp 15; Temp 98.9; Pulse Ox 99% ; Weight 59.87 kg; Height 5 ft. ss 7 in. (170.18 cm); Pain 5/10; 14:00 BP 121 / 71; Pulse 70; Resp 14; Pulse Ox 100% ; Pain 6/10; ll1 17:39 BP 119 / 71; Pulse 60; Resp 14; Pulse Ox 100% on R/A; ll1 13:23 Body Mass Index 20.67 (59.87 kg, 170.18 cm) ss [place] Coma Score: 13:23 Eye Response: spontaneous(4). Verbal Response: oriented(5). Motor Response: obeys commands(6). Total: 15. Trauma Score (Adult): 13:23 Eye Response: spontaneous(1); Verbal Response: oriented(1); Motor Response: obeys commands(2); Systolic BP: > 89 mm Hg(4); Respiratory Rate: 10 to 29 per min(4); Ronna Score: 15; Trauma Score: 12 ED Course: 13:23 Patient arrived in ED. ss 13:23 Patient has correct armband on for positive identification. Bed in low position. Call ss light in reach. residential monitor on. Pulse ox on. NIBP on. 13:23 Patient maintains SpO2 saturation greater than 95% on room air. Thermoregulation: warm ss blanket given to patient. 13:24 Herbert Kelley MD is Attending Physician. rn 13:25 Arm band placed on Patient placed in an exam room, on a stretcher. ll1 13:28 Vipin Black, MAYLIN is Primary Nurse. ll1 13:29 Triage completed. ss 13:38 XRAY Chest (1 view) In Process Unspecified. EDMS 13:50 CT Head C Spine In Process Unspecified. EDMS 13:51 Inserted saline lock: 18 gauge in right antecubital area, using aseptic technique. cs9 13:56 CT Chest W/ Con In Process Unspecified. EDMS 15:10 Alicia Wan MD is Hospitalizing Provider. rn 17:35 No provider procedures requiring assistance completed. ll1 18:21 Patient admitted, IV remains in place. ll1 Administered Medications: No medications were administered Intake: 18:21 PO: 0ml; Total: 0ml. ll1 Output: 18:21 Urine: 0ml; Total: 0ml. ll1 Outcome: 15:11 Decision to Hospitalize by Provider. rn 18:20 Admitted to Tele accompanied by tech, family with patient, via stretcher, room 408, ll1 with chart, Report called to MAYLIN Lizarraga on 4th. 18:20 Condition: stable 18:20 Instructed on the need for admit. 18:21 Patient's length of stay was not longer than 2 hours. ll1 18:32 Patient left the ED. ll1 Signatures: Dispatcher [employer] EDMS Herbert Kelley MD MD rn Smirch, Shelby, RN RN ss Vipin Black RN RN ll1 Rosa Kulkarni cs9
--- NOTE | 2021-09-08 15:20 | P.HP ---
Certification for Inpatient With expected LOS: >2 Midnights Patient will require the following post-hospital care: None Practitioner: I am a practitioner with admitting privileges, knowledge of patient current condition, hospital course, and medical plan of care. Services: Services provided to patient in accordance with Admission requirements found in Title 42 Section 412.3 of the Code of Federal Regulations <Dana Chilel - Last Filed: 09/08/21 15:37> Patient History Date of Service: 09/08/21 Reason for admission: syncope History of Present Illness: 22-year-old male presents for evaluation of syncope. He was playing soccer when the ball hit his chest and he passed out. He also went cyanotic and EMS was called. He denies any medical history such as seizures or cardiac problems. He does have family history of atrial septal defect and older brother. He also denies smoking, recreational drug, drinking. He had breakfast smoothie before he came for the soccer match. Today he denies fever, chest pain, shortness of breath, nausea, vomiting, diarrhea, constipation, abdominal pain. He reports he has had 5 episodes of syncope during the last 1 year, each lasting few minutes. He has not seen any provider for evaluation. All of his work-up including CT head, CT chest is negative. EKG noted for normal sinus rhythm <RanjanaDana - Last Filed: 09/08/21 15:37> Date of Service: 09/08/21 <Alicia Wan - Last Filed: 09/09/21 01:16> Review of Systems General: Unremarkable Eyes: Unremarkable ENT: Unremarkable Respiratory: Unremarkable Cardiovascular: Unremarkable Gastrointestinal: Unremarkable Musculoskeletal: Unremarkable Neurological: Unremarkable <RanjanaDana - Last Filed: 09/08/21 15:37> Physical Examination - Physical Exam General: Alert, In no apparent distress, Oriented x3 HEENT: Atraumatic, Normocephalic, PERRLA, Mucous membr. moist/pink, EOMI, Sclerae nonicteric Neck: Supple, 2+ carotid pulse no bruit, JVD not distended Respiratory: Clear to auscultation bilaterally, Normal air movement Cardiovascular: No edema, Normal pulses, Regular rate/rhythm Gastrointestinal: Normal bowel sounds, Soft and benign, Non-distended, No ascites, No tenderness, No masses, No rebound, No guarding Musculoskeletal: No clubbing, No swelling, No contractures, No erythema, No tenderness Integumentary: No rashes, No breakdown, No significant lesion, No tenderness/swelling, No erythema, No warmth, No cyanosis Neurological: Normal speech (Gait not assessed), Normal strength at 5/5 x4 extr, Normal tone, Sensation intact - Studies Laboratory Data (last 24 hrs) 09/08/21 12:36: PT 11.2, INR 0.97, APTT 32.0 09/08/21 12:36: Sodium 141, Potassium 3.7, BUN 9, Creatinine 1.14, Glucose 112 H 09/08/21 12:36: WBC 5.00, Hgb 15.3, Hct 45.1, Plt Count 209 <Dana Chilel - Last Filed: 09/08/21 15:37> - Studies Laboratory Data (last 24 hrs) 09/08/21 12:36: PT 11.2, INR 0.97, APTT 32.0 09/08/21 12:36: Sodium 141, Potassium 3.7, BUN 9, Creatinine 1.14, Glucose 112 H 09/08/21 12:36: WBC 5.00, Hgb 15.3, Hct 45.1, Plt Count 209 Microbiology Data (last 24 hrs): 09/08/21 14:00 Nasopharnyx Influenza Type A Antigen Screen - Final 09/08/21 14:00 Nasopharnyx Influenza Type B Antigen Screen - Final 09/08/21 14:00 Throat Group A Streptococcus Rapid Screen - Final <Alicia Wan - Last Filed: 09/09/21 01:16> Assessment and Plan - Plan Assessment: Mr. Nielsen is a 30-year-old male presents for evaluation of syncope while playing soccer. He has no medical history and does not take any prescription medications. All of his work-up CT head, CT chest is negative for any abnormality. Plan: Syncope: CT chest negative CT head negative EKG noted for normal sinus rhythm Echo pending May consult cardiology. Discharge Plan: Home Plan to discharge in: 24 Hours - Advance Directives Does patient have a Living Will: No Does patient have a Durable POA for Healthcare: No <Dana Chilel - Last Filed: 09/08/21 15:37> Date of Service: 09/08/21 Subjective: Agree with the HPI as above Physical Examination: Vitals: Afebrile vital signs are stable Physical exam: Cardiovascular: Within normal limits. Lungs: Within normal limits Abdomen: Within normal limits Neuro: Awake, alert, oriented to person place and time Assessment: 1. Syncope Plan: 1. Continue with current plan of care 2. Carotid Doppler 3. Echocardiogram 4. Cardiology consultation 5. Telemetry monitoring <Alicia Wan - Last Filed: 09/09/21 01:16>
[2021-09-08 19:11] VITALS: BMI 20.7
[2021-09-08] MEDS: ACETAMINOPHEN 500 MG TAB PO PRN (20:11)
[2021-09-09 04:04] LABS: Absolute Lymphocytes (CBC) 1.8 K/uL (0.7-4.9); Basophils % 0.6 % (0-1.3); Hematocrit 44.8 % (39.6-49.0); Lymphocytes % 49.9 % (15.3-44.8); MPV 7.2 fL (7.6-11.3); RBC Red Blood Cell Count 4.89 M/uL (4.33-5.43)
[2021-09-09 04:25] LABS: ALT/SGPT 31 U/L (12-78); AST/SGOT 25 U/L (15-37); Albumin 3.9 g/dL (3.4-5.0); Alkaline Phosphatase 70 U/L (45-117); BUN Blood Urea Nitrogen 13 mg/dL (7-18); Bicarbonate 30 mmol/L (21-32); Bilirubin Total 0.4 mg/dL (0.2-1.0); Glucose Level 93 mg/dL (74-106); Potassium 4.1 mmol/L (3.5-5.1); Protein, Total 7.3 g/dL (6.4-8.2); Sodium Level 141 mmol/L (136-145)
--- NOTE | 2021-09-09 07:07 | EKG ---
Test Date: 2021-09-08 Test Time: 13:27:35 Dairy Hand: MITRA MEASUREMENT RESULTS: Intervals: Rate: 66 WV: 140 QRSD: 94 QT: 382 QTc: 400 [place]: P: 89 WV: 140 QRS: 81 T: 43 INTERPRETIVE STATEMENTS: Normal sinus rhythm Normal ECG Compared to ECG 05/20/2020 17:37:46 Atrial abnormality no longer present Electronically Signed On 09-09-21 07:04:38 CDT by Juan Daniel Mcrae
[2021-09-09] MEDS ORDERED: INFLUENZA VACCINE (for 6+ mo) 0.5 ML DOSE IMVAC ONE (12:00)
[2021-09-09 12:37] VITALS: BP 110/66; TEMP 98.1
--- NOTE | 2021-09-09 12:42 | CON ---
Date of Consultation: 09/09/2021 Reason For Consultation: Syncope. History Of Present Illness: Mr. Nielsen is only 30. Came in with syncope x5 episodes, tested positiv e for COVID. No chest pain. No nausea, vomiting, diaphoresis, PND, orthopnea, pedal edema, or palpi tation. Denied any fever or chills. Echocardiogram is pending. Past Medical History: Negative. Allergies: NONE. Home Medications: None. Review of Systems: Negative. Social History: Negative. Physical Examination: Vital Signs: Stable, afebrile, sinus rhythm. Chest: Clear. Cardiac: Normal. Abdomen: Benign. Extremities: Revealed no clubbing, cyanosis, or edema. Diagnostic Data: Normal. Impression And Plan: 1.Syncope, most likely vasovagal in nature, orthostatic. Echocardiogram is pending. He should have a 7-day event monitor as an outpatient. 2.Positive COVID. Continue present regimen. LILIAM Voice ID: [id number] Report ID: [id number]
[2021-09-09] MEDS: ACETAMINOPHEN 500 MG TAB PO PRN (12:57)
--- NOTE | 2021-09-09 13:57 | P.DS ---
Admission Date: 09/08/21 Discharge Date: 09/09/21 Primary Care Provider: none Disposition: ROUTINE DISCHARGE Discharge Condition: GOOD Reason for Admission: syncope Consultations: Cardiology-Dr. Mcrae Procedures: COVID: Positive CT head: COMPARISON: CT head August 2020 TECHNIQUE: Axial 5 mm thick images of the head were obtained. Axial 2 mm thick images of the cervical spine were obtained with sagittal and coronal reconstruction images generated and reviewed. All CT scans are performed using dose optimization technique as appropriate and may include automated exposure control or mA/KV adjustment according to patient size. FINDINGS: No intracranial hemorrhage, mass, edema or acute intracranial finding. No suspicion for acute infarction. No extra-axial fluid collections. Mastoid air cells are clear. Minimal mucosal thickening and small air-fluid level in the right maxillary sinus. No globe or orbit abnormality seen. Cervical body height and alignment are normal. No disk space narrowing. No fracture or acute bony abnormality. Central canal detail is inherently limited. No paraspinal mass or hematoma. IMPRESSION: Negative CT head examination for acute or significant finding. Negative CT cervical spine examination for acute or significant finding. No significant changes from prior imaging. CXR: COMPARISON: August 2020 TECHNIQUE: AP portable chest image was obtained 09/08/2021 1:38 pm in supine position with the patient still on a backboard. FINDINGS: Lungs are clear. Heart and vasculature are normal. No measurable pleural effusion and no pneumothorax. No acute bony abnormality seen. No acute aortic findings suspected. IMPRESSION: No acute cardiopulmonary process. CT chest: COMPARISON: Head C Spine Mpr Wo Con dated 09/11/2020No comparisons TECHNIQUE: Dynamically enhanced 5 mm thick images of the chest were obtained during administration of 100 mL non-ionic IV contrast. All CT scans are performed using dose optimization technique as appropriate and may include automated exposure control or mA/KV adjustment according to patient size. FINDINGS: No mass or infiltrate in the lung parenchyma. No pleural thickening or pleural effusion. No pneumothorax. No chest wall mass or abnormal axillary lymphadenopathy. No abnormal mediastinal or hilar mass or lymphadenopathy seen. No mediastinal hematoma. Sternum is intact. No rib fractures identifiable. IMPRESSION: Negative contrast enhanced CT chest examination. ECHO: MEASUREMENTS (cm) DIASTOLIC (NORMALS) SYSTOLIC (NORMALS) IVSd 1.0 (0.6-1.2) LA Diam (1.9-4.0) LVEF 58% LVIDd 4.1 (3.5-5.7) LVIDs 2.9 (2.0-3.5) %FS 30% LVPWd 0.9 (0.6-1.2) Ao Diam 2.4 (2.0-3.7) 2 DIMENSIONAL ASSESSMENT: RIGHT ATRIUM: NORMAL LEFT ATRIUM: NORMAL RIGHT VENTRICLE: NORMAL LEFT VENTRICLE: NORMAL TRICUSPID VALVE: NORMAL MITRAL VALVE: NORMAL PULMONIC VALVE: NORMAL AORTIC VALVE: NORMAL PERICARDIAL EFFUSION: NONE AORTIC ROOT: NORMAL LEFT VENTRICULAR WALL MOTION: NORMAL. DOPPLER/COLOR FLOW: NORMAL. COMMENTS: NORMAL LEFT VENTRICULAR EJECTION FRACTION 55-60%. NORMAL WALL MOTION. NORMAL STUDY. Medical Problem List: Syncope likely orthostatic hypotension Covid positive asymptomatic Brief History of Present Illness: 22-year-old male presents for evaluation of syncope. He was playing soccer when the ball hit his chest and he passed out. He also went cyanotic and EMS was called. He denies any medical history such as seizures or cardiac problems. There is a family history of atrial septal defect with his older brother being diagnosed with this. He denies any smoking, recreational drug use, or alcohol. He had breakfast smoothie before he came for the soccer match. Today he denies fever, chest pain, shortness of breath, nausea, vomiting, diarrhea, constipation, abdominal pain. He reports he has had 5 episodes of syncope during the last 1 year, each lasting few minutes. He has not seen any provider for evaluation. All of his work-up including CT head, CT chest is negative. EKG noted for normal sinus rhythm. Patient was admitted for observation. Hospital Course: Patient presented with syncopal episode after he was playing soccer and got hit with the ball in his chest. Patient had reported some syncopal episodes in the past. Patient was evaluated in the emergency room. CT head unremarkable. CT chest unremarkable. Patient was found to be positive for Covid 19. Patient asymptomatic. Patient was observed. Patient seen and evaluated by cardiology. Cardiac enzymes unremarkable. No significant EKG changes noted. Echocardiogram unremarkable. Cardiology suspects orthostatic hypotension. Recommend to increase fluid intake and oral intake. Recommend follow-up with cardiology within 1 week to follow-up his hospitalization. Patient will require 7-day event monitor for further evaluation. Recommend follow-up with PCP to further address and monitor. Patient was positive for COVID-19. Patient asymptomatic at this time. CT chest unremarkable. No need for medication at this time. Patient will continue with COVID-19 recommendations on isolation. Recommend to continue handwashing, facemask use, social distancing. Vital Signs/Physical Exam: Temp Pulse Resp BP Pulse Ox 98.1 F 48 L 16 110/66 100 09/09/21 12:00 09/09/21 12:00 09/09/21 12:00 09/09/21 12:00 09/09/21 12:00 General: Alert, In no apparent distress, Oriented x3, Cooperative HEENT: Atraumatic Neck: Supple Respiratory: Clear to auscultation bilaterally, Normal air movement Cardiovascular: Normal pulses, Regular rate/rhythm Gastrointestinal: Normal bowel sounds, No ascites, No tenderness, No masses, No rebound, No guarding Musculoskeletal: No erythema, No tenderness, No warmth Integumentary: No tenderness/swelling, No erythema, No warmth, No cyanosis Neurological: Normal speech, Normal strength at 5/5 x4 extr, Normal tone Laboratory Data at Discharge: WBC 3.60 K/uL (4.3-10.9) L D 09/09/21 03:05 Hgb 15.4 g/dL (13.6-17.9) 09/09/21 03:05 Hct 44.8 % (39.6-49.0) 09/09/21 03:05 Plt Count 223 K/uL (152-406) 09/09/21 03:05 PT 11.2 SECONDS (9.5-12.5) 09/08/21 12:36 INR 0.97 09/08/21 12:36 APTT 32.0 SECONDS (24.3-36.9) 09/08/21 12:36 Sodium 141 mmol/L (136-145) 09/09/21 03:05 Potassium 4.1 mmol/L (3.5-5.1) 09/09/21 03:05 BUN 13 mg/dL (7-18) 09/09/21 03:05 Creatinine 0.91 mg/dL (0.55-1.3) 09/09/21 03:05 Glucose 93 mg/dL (74-106) 09/09/21 03:05 Total Bilirubin 0.4 mg/dL (0.2-1.0) 09/09/21 03:05 AST 25 U/L (15-37) 09/09/21 03:05 ALT 31 U/L (12-78) 09/09/21 03:05 Alkaline Phosphatase 70 U/L (45-117) 09/09/21 03:05 Home Medications: NK [No Home Meds] 09/08/21 Physician Discharge Instructions: Patient presented with syncopal episode after he was playing soccer and got hit with the ball in his chest. Patient had reported some syncopal episodes in the past. Patient was evaluated in the emergency room. CT head unremarkable. CT chest unremarkable. Patient was found to be positive for Covid 19. Patient asymptomatic. Patient was observed. Patient seen and evaluated by cardiology. Cardiac enzymes unremarkable. No significant EKG changes noted. Echocardiogram unremarkable. Cardiology suspects orthostatic hypotension. Recommend to increase fluid intake and oral intake. Recommend follow-up with cardiology within 1 week to follow-up his hospitalization. Patient will require 7-day event monitor for further evaluation. Recommend follow-up with PCP to further address and monitor. Patient was positive for COVID-19. Patient asymptomatic at this time. CT chest unremarkable. No need for medication at this time. Patient will continue with COVID-19 recommendations on isolation. Recommend to continue handwashing, facemask use, social distancing. Diet: AHA Activity: Ad azul Followup: Dana Chilel PA [Primary Care Provider] - Time spent managing pt's care (in minutes): 55
--- NOTE | 2021-09-09 14:29 | ECHO ---
HEIGHT: 5 ft 7 in WEIGHT: 131 lb 15.852 oz DATE OF STUDY: 09/09/[address]: TORSTEN Reid 2-DIMENSIONAL: YES M.MODE: YES DOPPLER: YES COLOR FLOW: YES TDS: NO PORTABLE: NO DEFINITY: NO BUBBLE STUDY: NO DIAGNOSIS: SYNCOPE CARDIAC HISTORY: CATHERIZATION: SURGERY: PROSTHETIC VALVE: PACEMAKER: MEASUREMENTS (cm) DIASTOLIC (NORMALS) SYSTOLIC (NORMALS) IVSd 1.0 (0.6-1.2) LA Diam (1.9-4.0) LVEF 58% LVIDd 4.1 (3.5-5.7) LVIDs 2.9 (2.0-3.5) %FS 30% LVPWd 0.9 (0.6-1.2) Ao Diam 2.4 (2.0-3.7) 2 DIMENSIONAL ASSESSMENT: RIGHT ATRIUM: NORMAL LEFT ATRIUM: NORMAL RIGHT VENTRICLE: NORMAL LEFT VENTRICLE: NORMAL TRICUSPID VALVE: NORMAL MITRAL VALVE: NORMAL PULMONIC VALVE: NORMAL AORTIC VALVE: NORMAL PERICARDIAL EFFUSION: NONE AORTIC ROOT: NORMAL LEFT VENTRICULAR WALL MOTION: NORMAL. DOPPLER/COLOR FLOW: NORMAL. COMMENTS: NORMAL LEFT VENTRICULAR EJECTION FRACTION 55-60%. NORMAL WALL MOTION. NORMAL STUDY. TECHNOLOGIST: ROZ ADLER
[2021-09-09 16:14] VITALS: O2SAT 97
== END 2021-09-09 16:22 | disposition home or self-care (01) | DRG 312 ==
LOC: SUPCPDRO 13:22 → ER 13:22 → ERHOLD 15:22 → 4TH 18:21
PROVIDERS: ADMIT Hospitalist; ATTEND Hospitalist
DX: I95.1 Orthostatic hypotension (principal); U07.1 COVID-19; S20.212A Contusion of left front wall of thorax, initial encounter; W21.02XA Struck by soccer ball, initial encounter; Y92.838 Other recreation area as the place of occurrence of the external cause
CPT/HCPCS: 36415; 70450; 71045; 71260; 72125; 80048; 80053; 82565; 84484; 85025; 85610; 85730; 87070; 87081; 87804; 93005; 93306; 94760; 99285; Q9967; U0003